=== PATIENT | female | born 2000 | race Caucasian/White ===

== ENCOUNTER 2024-04-02 07:46 | Inpatient (IN) ==
[2024-04-02] MEDS ORDERED: LIDOCAINE 1% LOCAL 20 ML VIAL INFIL PRN (07:50)
--- NOTE | 2024-04-02 08:14 | History & Physical Report ---
Date of Service April 02, 2024 Assessment & Plan (1) Encounter for induction of labor: (2) Obesity affecting : (3) Supervision of normal intrauterine in primigravida: (4) Carrier of group B Streptococcus: Plan admit for IOL SROM labs & vitals stable FHT category 1 Start pit, pt desires pain control via IV, needs penicillin Admission and Anticipated Discharge Date Admission Date: April 02, 2024 History of Present Illness Chief Complaint: IOL, SROM Primary Care Provider: PATY Ding Patient is a 23 y/o female G1 currently at 40 4/7 WGA (BARBARA 03/29/24 by LMP) who presents to L&D for IOL. This has been uncomplicated. She has had regular appointments with OB. She denies fevers, fatigue, HANKS, SOB, chest pain, leg swelling, or n/v exceeding baseline -related symptoms. Having mild, irregular contractions but cannot feel them yet; movement present; SROM on way to room External FHT and external uterine monitors in place; tracing category 1, normal variability Blood type: A+ Antibody screen: negative GBS: pos Rubella: Immune VDRL/RPR: Neg Gonorrhea: Not detected Chalmydia: Not detected HIV: Neg HbSAg: Non-reactive Allergies Allergy/AdvReac Type Severity Reaction Status Date / Time No Known Allergies Allergy Verified 04/02/24 08:35 Home Medications Medication Instructions Recorded Confirmed Type bupropion HCl 150 mg 24 hr tablet, 150 mg PO DAILY 08/22/23 04/02/24 History extended release (Wellbutrin XL) albuterol sulfate 2 puff inhalation DIRECTED PRN 10/17/23 04/02/24 History Shortness Of Breath Or Wheezing Past Med/Surg History Problem List (Updated 04/02/24 @ 09:12 by Heydi Fletcher MD) Encounter for induction of labor Obesity affecting Supervision of normal intrauterine in primigravida Carrier of group B Streptococcus Medical History (Updated 04/02/24 @ 09:12 by Heydi Fletcher MD) Asthma uses albuterol as needed Anxiety with depression Welbutrin History of Chiari malformation Surgical History History of wisdom tooth extraction History of surgery Chiari Malformation repair (2013, [facility] [place] Family History Mother Factor 5 Leiden mutation, heterozygous Other Breast cancer Diabetes Social History (Updated 04/02/24 @ 08:35 by Donita Quiroz RN) Smoking Status: Never smoker Do You Dip or Chew Tobacco: No; Hx Alcohol Use: No Hx Substance Use: No Preferred Language: [place] Wrapping Machine Operator Required: No Beliefs That Will Affect Care: None marital status: Single marital status details: MOM: Liz [phone] Current Living Situation: Family and Significant Other Current Living Situation Comment: lives with foavery and his mother, 3 siblings, and moms jeanna current occupational status: employed current occupation: Retail at [employer] Other Information That Helps Us Care for You: No Feels Safe at Home: Yes Safety Concerns: Feels Safe At This Time Assistive Devices: Glasses Review of Systems 2 Constitutional: + fatigue Physical Exam 2 Physical Exam: General: Alert and oriented. No acute distress CV: Regular rate and rhythm. No murmurs. Respiratory: CTA bilaterally. No increased work of breathing. Symmetrical chest rise Abdomen: Gravid: Soft, nontender upon palpation Pelvic: 2cm dilation, -[address] Guzman Lower extremities: NO LE edema. No deep calf pain. Results & Data Results & Data Vital Signs (Past 12 Hours) Vital Signs Pulse BP 04/02/24 08:30 82 133/82 Laboratory Results 04/02/24 08:07 Supervising Physician Co-Signing Physician Notes Resident Physician Supervision Note: I was present with Dr. Fletcher during the history and exam. I discussed the case with the resident and agree with the findings and plan as documented in the note. Any exceptions or clarifications are listed here: 23yo G1 at 40 wks with srom at 0615 this am, clear fluid. no regular ctx. ready for pitocin induction. sve tight 2/75%/-2, abd soft gravid nt 7-8#, ext no edema. fhts categ 1. toco irreg. begin pit, pcn for gbs pos. Documented By: Brea Guzman MD, FACOG
[2024-04-02 08:21] LABS: Hematocrit (blood only) 36.5 % (37.0-47.0); Hemoglobin 11.8 g/dl (12.0-16.0); Mean Corpuscular Hemoglobin 25.3 pg (25.0-34.0); Mean Corpuscular Hgb Conc 32.3 g/dL (32.0-36.0); Mean Corpuscular Volume 78.3 fL (80.0-100.0); Mean Platelet Volume 11.9 fL (9.4-12.4); Platelet Count 179 K/uL (130-400); RDW Coefficient of Variation 15.9 % (11.5-14.5); RDW Standard Deviation 44.2 fL (36.4-46.3); Red Blood Count 4.66 M/uL (4.20-5.40); White Blood Count 7.61 K/ul (4.8-10.8)
[2024-04-02] MEDS: PENICILLIN GK 6 MU in SODIUM CHLORIDE 0.9% 250 ML IV STA (08:32)
[2024-04-02] MEDS: LACTATED RINGER'S 1,000 ML IV SCH (08:45)
[2024-04-02] MEDS: OXYTOCIN 30 UNITS/NSS 30 UNITS/500 ML BAG IV PRN (09:15)
[2024-04-02] MEDS ORDERED: ePHEDrine sulfate 50 MG/ML AMP IV PRN (11:25)
[2024-04-02] MEDS ORDERED: NALBUPHINE HCL INJ 10 MG/ML AMP IV PRN (11:25)
[2024-04-02] MEDS ORDERED: LIDOCAINE 2% MPF LOCAL 5 ML VIAL EPI PRN (11:25)
[2024-04-02] MEDS ORDERED: NALOXONE HCL 1 MG in SODIUM CHLORIDE 0.9% 1,000 ML IV PRN (11:25)
[2024-04-02] MEDS ORDERED: NALOXONE HCL 0.4 MG/1 ML VIAL/CARP IV PRN (11:25)
[2024-04-02] MEDS ORDERED: ROPIVACAINE 0.5% PF 5 MG/ML 20 ML VIAL EPI PRN (11:25)
[2024-04-02] MEDS ORDERED: SODIUM CHLORIDE 0.9% PF INJ 10 ML VIAL EPI PRN (11:25)
[2024-04-02] MEDS ORDERED: diphenhydrAMINE 50 MG/ML VIAL IV PRN (11:25)
--- NOTE | 2024-04-02 11:29 | Anesthesiology Consultation ---
Date of Service April 02, 2024 Assessment & Plan Chart Review Chart Review: Patient NOT seen in Pre Admission Testing and Acceptable Risk for Labor Epidural Consults Requested none ASA ASA2 Proposed Anesthesia Anesthesia Type: Labor Epidural Risk / Benefits Reviewed With: PT / POA / Parent / Guardian, Accepts Plan and Informed Consent Obtained History Height/Weight Height: 5 ft Weight: 81.193 kg Allergies Allergy/AdvReac Type Severity Reaction Status Date / Time No Known Allergies Allergy Verified 04/02/24 08:35 Medications Home Medications Medication Instructions Recorded Confirmed Last Taken bupropion HCl 150 mg 24 hr tablet, 150 mg PO DAILY 08/22/23 04/02/24 04/02/24 extended release (Wellbutrin XL) albuterol sulfate 2 puff inhalation DIRECTED PRN 10/17/23 04/02/24 03/22/24 Shortness Of Breath Or Wheezing Active Medications Generic Name Dose Route Start Last Admin Trade Name Freq PRN Reason Stop Dose Admin Oxytocin 30 units in 500 mls @ 5 mls/hr 04/02/24 07:50 04/02/24 10:30 Pitocin 30 Units/Nss IV 04/04/24 07:49 0.3 units/hr .Q24H PRN 5 mls/hr Labor Induction/Augmentation Titration Protocol 0.3 UNITS/HR Lactated Ringer's 1,000 mls @ 50 mls/hr 04/02/24 08:45 04/02/24 11:44 Lr IV 04/03/24 08:44 50 mls/hr .Q20H JOAO Administration NPO Date Last Intake of Fluids: 04/02/24 Time Last Intake of Fluids: 11:00 Date Last Intake of Solids: 04/02/24 Time Last Intake of Solids: 02:00 Past Medical History Medical History Asthma uses albuterol as needed Anxiety with depression Welbutrin History of Chiari malformation Exercise / Class Metabolic Activity 1 > 8 Run/Swim/Ski/Tennis Past Family History Family History Mother Factor 5 Leiden mutation, heterozygous Other Breast cancer Diabetes Past Surgical History Surgical History History of wisdom tooth extraction History of surgery Chiari Malformation repair (2014, [facility] – [place]) Past Anesthesia History No Hx of Anesthesia Complications and No Family Hx of Anesthesia Complications History of PONV No Hx of PONV and No Hx of Motion Sickness Social History Smoking Status: Never smoker Do You Dip or Chew Tobacco: No Hx Alcohol Use: No Hx Substance Use: No substance use type: does not use Review of Systems ROS Unobtainable: All systems reviewed & are unremarkable except as noted in HPI & below Physical Exam Vital Signs Last Vital Signs Temp 37.1 C 04/02/24 11:10 Pulse 78 04/02/24 11:25 Resp 20 04/02/24 11:10 BP 147/86 H 04/02/24 11:16 Pulse Ox 100 04/02/24 11:25 ENMT Mouth: no TMJ abnormality Thyromental Distance: > or= 3.5 Finger Breadths Mallampati Class: II Neck normal visual inspection and trachea midline; neck extension not limited Respiratory normal respiratory effort Auscultation: lungs clear to auscultation bilaterally Cardiovascular Rate/Rhythm: regular rate and regular rhythm Heart Sounds: no murmur Musculoskeletal Spine: normal cervical ROM Extremities: full ROM of extremities Neurologic moves all extremities Psychiatric Orientation: alert and oriented x 3 Testing Laboratory Results 04/02/24 08:07
[2024-04-02] MEDS: LIDOCAINE 2%/EPINEPHRINE 1:200,000 20 ML PF ONE (11:50)
[2024-04-02] MEDS: fentaNYL citrate PF 100 MCG/2 ML VIAL ONE (11:50)
[2024-04-02] MEDS: BUPIVACAINE 0.25% PF 30 ML VIAL ONE (11:50)
[2024-04-02] MEDS: fentANYL 2 MCG/ML BUPIVacaine 0.125%-NSS 100ML BAG ONE (11:52)
[2024-04-02] MEDS: PENICILLIN GK 3 MU in DEXTROSE 5% 100 ML IV PRN (12:21)
[2024-04-02] MEDS: ONDANSETRON INJ 2 MG/ML 2 ML VIAL IV PRN (12:23)
[2024-04-02] MEDS: SODIUM CHLORIDE 0.9% PF INJ 10 ML VIAL ONE (12:28)
[2024-04-02] MEDS: fentaNYL citrate PF 100 MCG/2 ML VIAL EPI STA (12:28)
[2024-04-02] MEDS: LIDOCAINE 2%/EPINEPHRINE 1:200,000 20 ML PF EPI STA (12:28)
[2024-04-02] MEDS: BUPIVACAINE 0.25% PF 30 ML VIAL EPI STA (12:28)
[2024-04-02] MEDS: SODIUM CHLORIDE 0.9% PF INJ 10 ML VIAL EPI STA (12:28)
--- NOTE | 2024-04-02 13:29 | Labor Progress Brief Note ---
Date of Service April 02, 2024 Subjective now comfortable with epidural Assessment & Plan (1) Encounter for induction of labor: (2) PROM (premature rupture of membranes): Plan no real cx change. will cont with pitocin. fhts categ 1. c/w pcn for gbs. Admission and Anticipated Discharge Date Admission Date: April 02, 2024 Physical Exam Constitutional: WD/WN, vitals as above Genitourinary: Manual OB Exam: + cervical dilation (2), + cervical effacement 70% and + station -2 OB Exam Monitor Tracing: + external FHT monitor used, + external uterine monitor used (pit at 7), + category I and + normal FHT variability Results & Data Vital Signs (Past 12 Hours) Vital Signs Temp Pulse Resp BP Pulse Ox 04/02/24 13:26 88 98 04/02/24 13:21 78 100 04/02/24 13:20 80 103/54 L 04/02/24 13:16 78 99 04/02/24 13:11 76 99 04/02/24 13:06 74 100 04/02/24 13:05 81 115/56 L 04/02/24 13:01 76 100 04/02/24 13:00 18 04/02/24 13:00 98.2 F 18 04/02/24 12:56 84 100 04/02/24 12:51 79 100 04/02/24 12:50 81 117/57 L 04/02/24 12:46 77 100 04/02/24 12:45 20 04/02/24 12:41 82 99 04/02/24 12:36 73 100 04/02/24 12:35 75 117/56 L 04/02/24 12:31 77 99 04/02/24 12:30 18 04/02/24 12:26 75 100 04/02/24 12:21 99 H 99 04/02/24 12:19 90 129/67 04/02/24 12:17 88 119/63 04/02/24 12:15 18 04/02/24 12:15 100 04/02/24 12:15 76 04/02/24 12:15 72 123/61 04/02/24 12:13 82 122/65 04/02/24 12:11 92 H 125/66 04/02/24 12:10 79 100 04/02/24 12:09 85 115/57 L 04/02/24 12:07 95 H 116/56 L 04/02/24 12:05 95 H 116/57 L 100 04/02/24 12:03 109 H 117/60 04/02/24 12:01 86 120/63 04/02/24 12:00 20 04/02/24 12:00 97 H 99 04/02/24 11:59 96 H 119/64 04/02/24 11:57 88 120/66 04/02/24 11:55 97 H 123/68 100 04/02/24 11:53 93 H 123/70 04/02/24 11:51 84 127/69 04/02/24 11:50 87 100 04/02/24 11:49 91 H 123/76 04/02/24 11:47 87 140/61 04/02/24 11:45 94 H 99 04/02/24 11:40 92 H 100 04/02/24 11:35 94 H 100 04/02/24 11:30 82 100 04/02/24 11:25 78 100 04/02/24 11:20 81 100 04/02/24 11:16 82 147/86 H 04/02/24 11:15 81 100 04/02/24 11:10 98.8 F 82 20 99 04/02/24 10:16 74 127/77 04/02/24 09:15 76 138/86 04/02/24 08:31 98.2 F 18 04/02/24 08:30 82 133/82 Coding Level of Care Code None Diagnoses Encounter for induction of labor Z34.90 PROM (premature rupture of membranes) O42.90
[2024-04-02] MEDS: CALCIUM CARBONATE 500 MG CHEWABLE TAB PO PRN (14:43)
[2024-04-02] MEDS ORDERED: CALCIUM CARBONATE 500 MG CHEWABLE TAB PO PRN (16:06)
[2024-04-02] MEDS: ePHEDrine sulfate 50 MG/ML AMP ONE (17:46)
--- NOTE | 2024-04-02 18:08 | Labor Progress Brief Note ---
Date of Service April 02, 2024 Subjective feeling pressure Assessment & Plan (1) Encounter for induction of labor: (2) PROM (premature rupture of membranes): (3) Obesity affecting : Plan good cx change. keep using pitocin, pcn for gbs. fhts categ 1. Admission and Anticipated Discharge Date Admission Date: April 02, 2024 Physical Exam Constitutional: WD/WN, vitals as above Genitourinary: Manual OB Exam: + cervical dilation 5 cm, + cervical effacement 80% and + station -2 Results & Data Vital Signs (Past 12 Hours) Vital Signs Temp Pulse Resp BP Pulse Ox 04/02/24 18:06 106 H 120/69 04/02/24 18:01 113 H 99 04/02/24 17:56 83 99 04/02/24 17:51 81 99 04/02/24 17:50 86 119/62 04/02/24 17:46 80 100 04/02/24 17:41 105 H 98 04/02/24 17:37 83 119/62 04/02/24 17:36 90 99 04/02/24 17:31 104 H 100 04/02/24 17:30 20 04/02/24 17:26 101 H 100 04/02/24 17:21 111 H 100 04/02/24 17:20 108 H 118/62 04/02/24 17:16 100 H 100 04/02/24 17:11 94 H 98 04/02/24 17:06 98 04/02/24 17:06 111 H 04/02/24 17:06 101 H 115/57 L 04/02/24 17:01 103 H 99 04/02/24 17:00 16 04/02/24 17:00 98.6 F 16 04/02/24 16:56 88 100 04/02/24 16:53 99 H 118/60 04/02/24 16:51 94 H 100 04/02/24 16:46 107 H 100 04/02/24 16:41 88 100 04/02/24 16:36 107 H 99 04/02/24 16:35 91 H 116/58 L 04/02/24 16:31 99 H 99 04/02/24 16:30 20 04/02/24 16:30 20 04/02/24 16:26 86 100 04/02/24 16:21 105 H 122/70 99 04/02/24 16:16 111 H 99 04/02/24 16:11 83 98 04/02/24 16:06 81 120/62 97 04/02/24 16:01 102 H 99 04/02/24 16:00 20 04/02/24 16:00 20 04/02/24 15:56 80 97 04/02/24 15:51 98 H 121/64 98 04/02/24 15:46 82 98 04/02/24 15:41 90 99 04/02/24 15:36 79 121/69 99 04/02/24 15:31 111 H 99 04/02/24 15:30 20 04/02/24 15:30 20 04/02/24 15:26 100 H 99 04/02/24 15:21 99 H 98 04/02/24 15:20 92 H 125/67 04/02/24 15:16 86 98 04/02/24 15:11 90 98 04/02/24 15:06 81 97 04/02/24 15:05 86 125/71 04/02/24 15:01 94 H 97 04/02/24 15:00 18 04/02/24 15:00 99.0 F 18 04/02/24 14:56 83 98 04/02/24 14:51 77 130/64 98 04/02/24 14:46 97 H 98 04/02/24 14:41 95 H 98 04/02/24 14:37 88 119/63 04/02/24 14:36 93 H 98 04/02/24 14:31 87 99 04/02/24 14:30 20 04/02/24 14:30 20 04/02/24 14:26 109 H 99 04/02/24 14:21 99 04/02/24 14:21 103 H 04/02/24 14:21 96 H 113/59 L 04/02/24 14:16 96 H 98 04/02/24 14:11 107 H 99 04/02/24 14:09 93 H 132/73 04/02/24 14:06 95 H 99 04/02/24 14:01 96 H 99 04/02/24 14:00 20 04/02/24 14:00 20 04/02/24 13:56 87 99 04/02/24 13:51 92 H 100 04/02/24 13:50 88 116/64 04/02/24 13:46 91 H 99 04/02/24 13:45 18 04/02/24 13:41 89 99 04/02/24 13:37 86 123/67 04/02/24 13:36 90 99 04/02/24 13:31 84 98 04/02/24 13:30 20 04/02/24 13:30 20 04/02/24 13:26 88 98 04/02/24 13:21 78 100 04/02/24 13:20 80 103/54 L 04/02/24 13:16 78 99 04/02/24 13:15 20 04/02/24 13:11 76 99 04/02/24 13:06 74 100 04/02/24 13:05 81 115/56 L 04/02/24 13:01 76 100 04/02/24 13:00 18 04/02/24 13:00 98.2 F 18 04/02/24 12:56 84 100 04/02/24 12:51 79 100 04/02/24 12:50 81 117/57 L 04/02/24 12:46 77 100 04/02/24 12:45 20 04/02/24 12:41 82 99 04/02/24 12:36 73 100 04/02/24 12:35 75 117/56 L 04/02/24 12:31 77 99 04/02/24 12:30 18 04/02/24 12:26 75 100 04/02/24 12:21 99 H 99 04/02/24 12:19 90 129/67 04/02/24 12:17 88 119/63 04/02/24 12:15 18 04/02/24 12:15 100 04/02/24 12:15 76 04/02/24 12:15 72 123/61 04/02/24 12:13 82 122/65 04/02/24 12:11 92 H 125/66 04/02/24 12:10 79 100 04/02/24 12:09 85 115/57 L 04/02/24 12:07 95 H 116/56 L 04/02/24 12:05 95 H 116/57 L 100 04/02/24 12:03 109 H 117/60 04/02/24 12:01 86 120/63 04/02/24 12:00 20 04/02/24 12:00 97 H 99 04/02/24 11:59 96 H 119/64 04/02/24 11:57 88 120/66 04/02/24 11:55 97 H 123/68 100 04/02/24 11:53 93 H 123/70 04/02/24 11:51 84 127/69 04/02/24 11:50 87 100 04/02/24 11:49 91 H 123/76 04/02/24 11:47 87 140/61 04/02/24 11:45 94 H 99 04/02/24 11:40 92 H 100 04/02/24 11:35 94 H 100 04/02/24 11:30 82 100 04/02/24 11:25 78 100 04/02/24 11:20 81 100 04/02/24 11:16 82 147/86 H 04/02/24 11:15 81 100 04/02/24 11:10 98.8 F 82 20 99 04/02/24 10:16 74 127/77 04/02/24 09:15 76 138/86 04/02/24 08:31 98.2 F 18 04/02/24 08:30 82 133/82 Coding Level of Care Code None Diagnoses Encounter for induction of labor Z34.90 PROM (premature rupture of membranes) O42.90 Obesity affecting O99.210
[2024-04-02] MEDS: fentANYL 2 MCG/ML BUPIVacaine 0.125%-NSS 100ML BAG EPI PRN (18:52)
--- NOTE | 2024-04-02 19:37 | Labor Progress Brief Note ---
Date of Service April 02, 2024 Subjective comfortable now Assessment & Plan (1) Encounter for induction of labor: (2) PROM (premature rupture of membranes): (3) Obesity affecting : Plan c/w pit and pcn. good cx change. fhts categ 1. Admission and Anticipated Discharge Date Admission Date: April 02, 2024 Physical Exam Constitutional: WD/WN, vitals as above Genitourinary: Manual OB Exam: + cervical dilation 7 cm, + cervical effacement 80% and + station 0 OB Exam Monitor Tracing: + external FHT monitor used, + external uterine monitor used, + category I and + normal FHT variability Results & Data Vital Signs (Past 12 Hours) Vital Signs Temp Pulse Resp BP Pulse Ox 04/02/24 19:31 96 H 99 04/02/24 19:26 101 H 99 04/02/24 19:21 92 H 98 04/02/24 19:20 98 H 130/70 04/02/24 19:16 86 100 04/02/24 19:11 110 H 99 04/02/24 19:10 18 04/02/24 19:10 18 04/02/24 19:06 98 04/02/24 19:06 118 H 04/02/24 19:06 106 H 134/66 04/02/24 19:01 108 H 99 04/02/24 19:00 20 04/02/24 19:00 20 04/02/24 18:56 111 H 99 04/02/24 18:51 96 H 117/59 L 99 04/02/24 18:46 102 H 99 04/02/24 18:41 102 H 100 04/02/24 18:36 101 H 125/63 99 04/02/24 18:31 127 H 99 04/02/24 18:30 20 04/02/24 18:30 20 04/02/24 18:26 97 H 100 04/02/24 18:21 98 04/02/24 18:21 99 H 04/02/24 18:21 107 H 125/66 04/02/24 18:16 99 H 98 04/02/24 18:11 86 100 04/02/24 18:06 99 04/02/24 18:06 85 04/02/24 18:06 106 H 120/69 04/02/24 18:01 113 H 99 04/02/24 18:00 20 04/02/24 18:00 20 04/02/24 17:56 83 99 04/02/24 17:51 81 99 04/02/24 17:50 86 119/62 04/02/24 17:46 80 100 04/02/24 17:41 105 H 98 04/02/24 17:37 83 119/62 04/02/24 17:36 90 99 04/02/24 17:31 104 H 100 04/02/24 17:30 20 04/02/24 17:26 101 H 100 04/02/24 17:21 111 H 100 04/02/24 17:20 108 H 118/62 04/02/24 17:16 100 H 100 04/02/24 17:11 94 H 98 04/02/24 17:06 98 04/02/24 17:06 111 H 04/02/24 17:06 101 H 115/57 L 04/02/24 17:01 103 H 99 04/02/24 17:00 16 04/02/24 17:00 98.6 F 16 04/02/24 16:56 88 100 04/02/24 16:53 99 H 118/60 04/02/24 16:51 94 H 100 04/02/24 16:46 107 H 100 04/02/24 16:41 88 100 04/02/24 16:36 107 H 99 04/02/24 16:35 91 H 116/58 L 04/02/24 16:31 99 H 99 04/02/24 16:30 20 04/02/24 16:30 20 04/02/24 16:26 86 100 04/02/24 16:21 105 H 122/70 99 04/02/24 16:16 111 H 99 04/02/24 16:11 83 98 04/02/24 16:06 81 120/62 97 04/02/24 16:01 102 H 99 04/02/24 16:00 20 04/02/24 16:00 20 04/02/24 15:56 80 97 04/02/24 15:51 98 H 121/64 98 04/02/24 15:46 82 98 04/02/24 15:41 90 99 04/02/24 15:36 79 121/69 99 04/02/24 15:31 111 H 99 04/02/24 15:30 20 11/14/24 15:30 20 04/02/24 15:26 100 H 99 04/02/24 15:21 99 H 98 04/02/24 15:20 92 H 125/67 04/02/24 15:16 86 98 04/02/24 15:11 90 98 04/02/24 15:06 81 97 04/02/24 15:05 86 125/71 04/02/24 15:01 94 H 97 04/02/24 15:00 18 04/02/24 15:00 99.0 F 18 04/02/24 14:56 83 98 04/02/24 14:51 77 130/64 98 04/02/24 14:46 97 H 98 04/02/24 14:41 95 H 98 04/02/24 14:37 88 119/63 04/02/24 14:36 93 H 98 04/02/24 14:31 87 99 04/02/24 14:30 20 04/02/24 14:30 20 04/02/24 14:26 109 H 99 04/02/24 14:21 99 04/02/24 14:21 103 H 04/02/24 14:21 96 H 113/59 L 04/02/24 14:16 96 H 98 04/02/24 14:11 107 H 99 04/02/24 14:09 93 H 132/73 04/02/24 14:06 95 H 99 04/02/24 14:01 96 H 99 04/02/24 14:00 20 04/02/24 14:00 20 04/02/24 13:56 87 99 04/02/24 13:51 92 H 100 04/02/24 13:50 88 116/64 04/02/24 13:46 91 H 99 04/02/24 13:45 18 04/02/24 13:41 89 99 04/02/24 13:37 86 123/67 04/02/24 13:36 90 99 04/02/24 13:31 84 98 04/02/24 13:30 20 04/02/24 13:30 20 04/02/24 13:26 88 98 04/02/24 13:21 78 100 04/02/24 13:20 80 103/54 L 04/02/24 13:16 78 99 04/02/24 13:15 20 04/02/24 13:11 76 99 04/02/24 13:06 74 100 04/02/24 13:05 81 115/56 L 04/02/24 13:01 76 100 04/02/24 13:00 18 04/02/24 13:00 98.2 F 18 04/02/24 12:56 84 100 04/02/24 12:51 79 100 04/02/24 12:50 81 117/57 L 04/02/24 12:46 77 100 04/02/24 12:45 20 04/02/24 12:41 82 99 04/02/24 12:36 73 100 04/02/24 12:35 75 117/56 L 04/02/24 12:31 77 99 04/02/24 12:30 18 04/02/24 12:26 75 100 04/02/24 12:21 99 H 99 04/02/24 12:19 90 129/67 04/02/24 12:17 88 119/63 04/02/24 12:15 18 04/02/24 12:15 100 04/02/24 12:15 76 04/02/24 12:15 72 123/61 04/02/24 12:13 82 122/65 04/02/24 12:11 92 H 125/66 04/02/24 12:10 79 100 04/02/24 12:09 85 115/57 L 04/02/24 12:07 95 H 116/56 L 04/02/24 12:05 95 H 116/57 L 100 04/02/24 12:03 109 H 117/60 04/02/24 12:01 86 120/63 04/02/24 12:00 20 04/02/24 12:00 97 H 99 04/02/24 11:59 96 H 119/64 04/02/24 11:57 88 120/66 04/02/24 11:55 97 H 123/68 100 04/02/24 11:53 93 H 123/70 04/02/24 11:51 84 127/69 04/02/24 11:50 87 100 04/02/24 11:49 91 H 123/76 04/02/24 11:47 87 140/61 04/02/24 11:45 94 H 99 04/02/24 11:40 92 H 100 04/02/24 11:35 94 H 100 04/02/24 11:30 82 100 04/02/24 11:25 78 100 04/02/24 11:20 81 100 04/02/24 11:16 82 147/86 H 04/02/24 11:15 81 100 04/02/24 11:10 98.8 F 82 20 99 04/02/24 10:16 74 127/77 04/02/24 09:15 76 138/86 04/02/24 08:31 98.2 F 18 04/02/24 08:30 82 133/82 Coding Level of Care Code None Diagnoses Encounter for induction of labor Z34.90 PROM (premature rupture of membranes) O42.90 Obesity affecting O99.210
[2024-04-02] MEDS: BUPIVACAINE 0.25% PF 30 ML VIAL EPI PRN (23:03)
[2024-04-02] MEDS: fentaNYL citrate PF 100 MCG/2 ML VIAL EPI PRN (23:03)
--- NOTE | 2024-04-02 23:27 | Anesthesia Procedure Note ---
Date of Service April 02, 2024 Anesthesia Epidural Re-Dose Vital Signs Temp Pulse Resp BP Pulse Ox 37.0 C 101 H 18 122/67 99 04/02/24 21:30 04/02/24 23:21 04/02/24 21:30 04/02/24 23:17 04/02/24 23:21 Notes Pain Intensity: 5 Dilatation (cm): 8.0 Effacement (%): 80 Called by nursing to evaluate epidural as the patient is having increased pain. The epidural was re-dosed with the following medications (all medications via epidural route) after negative aspiration of the epidural catheter for CSF/HEME. 0.2 Ropivacaine ml via epidural After Epidural Re-Dose Mental Status: alert / awake / arousable and participated in evaluation Pain: improving with treatment Airway Patency, RR, SpO2: stable & adequate BP & HR: stable & adequate Additional Notes: Redosed with 8 cc of 0.25% and 100 mcg fentanyl with improvement. HDS.
[2024-04-02] MEDS ORDERED: NURSING L&D Epidural Breakthrough Pain Update ONE (23:40)
[2024-04-03] MEDS: BUTORPHANOL TARTRATE 2 MG/ML VIAL ONE (04:00)
--- NOTE | 2024-04-03 04:13 | Delivery Summary ---
Vaginal Delivery Summary Date of Service April 03, 2024 Vaginal Delivery Summary and 2nd Degree LAC The patient dilated to complete and pushed to deliver a viable female Apgars 8 and 9 via over 2nd degree perineal laceration. Mouth and nose bulb suctioned at perineum. Shoulders and body delivered with ease. was vigorous and crying at . Cord clamped at 30 seconds of life and to maternal abdomen where the cord was then doubly clamped and cut. Placenta delivered spontaneously and intact, three-vessel cord. Hemostasis not achieved with dilute pitocin and uterine massage and drainage of the bladder for approximately 50 cc under sterile conditions. Bimanual massage performed and uterus swept x 1 with no retained products. Cytotec rectally given 1000mcg and after bp assessed due to ongoing atony, Im methergine given. Hemostasis improving. Cervix and sulci intact. QBL 738 cc. Laceration repaired in routine fashion with 3-0 vicryl. Mother and baby stable in recovery. [facility] Vaginal Delivery Charge Delivery Type Details: and 2nd Degree LAC
[2024-04-03] MEDS: OXYTOCIN 30 UNITS/NSS 30 UNITS/500 ML BAG IV PRN (04:14)
[2024-04-03] MEDS ORDERED: HYDROCORTISONE ACETATE 25 MG SUPP PR PRN (04:36)
[2024-04-03] MEDS ORDERED: oxyCODONE/ACETAMINOPHEN 5mg/325mg TAB PO PRN (04:36)
[2024-04-03] MEDS ORDERED: OXYTOCIN 30 UNITS/NSS 30 UNITS/500 ML BAG IV PRN (04:36)
[2024-04-03] MEDS: BUTORPHANOL TARTRATE 2 MG/ML VIAL IV ONE (04:37)
[2024-04-03] MEDS ORDERED: ALBUTEROL HFA 8 GM INHALER INH PRN (04:40)
[2024-04-03] MEDS: METHYLERGONOVINE MALEATE 0.2 MG/ML AMP IM ONE (04:59)
[2024-04-03] MEDS: miSOPROStoL 200 MCG TAB PR ONE (05:00)
--- NOTE | 2024-04-03 07:18 | Anesthesia Procedure Note ---
Date of Service April 03, 2024 Anesthesia Post Epidural Note Vital Signs Vital Signs: Temp Pulse Resp BP Pulse Ox 98.2 F 92 H 16 136/81 99 04/03/24 03:45 04/03/24 06:08 04/03/24 06:10 04/03/24 06:08 04/03/24 04:12 Pain Intensity Buttock: Pain Intensity: 0 Notes Mental Status: alert / awake / arousable and participated in evaluation Nausea / Vomiting: adequately controlled Pain: adequately controlled Airway Patency, RR, SpO2: stable & adequate BP & HR: stable & adequate Hydration State: stable & adequate Neuraxial Anesthesia: was administered and sensory block is resolving Anesthetic Complications: no major complications apparent and Pt Satisfied with anesthetic care Epidural: Removed without complications and With tip intact
[2024-04-03] MEDS: buPROPion XL 150 MG TABCR PO SCH (07:58)
[2024-04-03] MEDS: DOCUSATE SODIUM 100 MG CAP PO SCH (07:59)
[2024-04-03] MEDS: PRENATAL VITAMIN 1 TAB PO SCH (07:59)
[2024-04-03] MEDS: IBUPROFEN 600 MG TAB PO PRN (07:59)
[2024-04-03] MEDS: BENZOCAINE 20% SPRY 85 APPLN/85 GM CAN EXT PRN (08:42)
[2024-04-03] MEDS: DIPHTHER/TETAN/PERTUS Vaccine (Tdap, Adol/Adult) 0.5mL IM ONE (12:23)
[2024-04-03 12:53] LABS: Hematocrit (blood only) 32.7 % (37.0-47.0); Hemoglobin 10.7 g/dl (12.0-16.0)
[2024-04-03] MEDS: ACETAMINOPHEN 325 MG TAB PO PRN (14:02)
[2024-04-03] MEDS: ONDANSETRON INJ 2 MG/ML 2 ML VIAL IV PRN (17:58)
--- NOTE | 2024-04-04 05:51 | Obstetrical Progress Note ---
Date of Service <Heydi Fletcher MD - Last Filed: 04/04/24 07:10> April 04, 2024 Assessment & Plan <Heydi Fletcher MD - Last Filed: 04/04/24 07:10> (1) Obesity affecting : (2) Supervision of normal intrauterine in primigravida: (3) Carrier of group B Streptococcus: Plan PPD#1, gbs+ s/p Williams, Rh+, ri Stable, continue routine care Plan for DC, send w pain meds <Mary Ellen Orellana MD - Last Filed: 04/04/24 07:48> (1) Obesity affecting : (2) Supervision of normal intrauterine in primigravida: (3) Carrier of group B Streptococcus: Plan PPD#1, gbs+ s/p Williams, Rh+, ri Stable, continue routine care Plan for DC Subjective <Heydi Fletcher MD - Last Filed: 04/04/24 07:10> Martha is a 23 y/o female G1 who is PPD#1 following at 40+ weeks. Minimal abd pain/cramping, well managed on analgesics Is voiding normally Tolerating meals Tried ambulating but it's harder since hips hurt Having appropriate lochia Planning for exclusive . Constitutional: no fever, no chills or no sweats Respiratory: no dyspnea Cardiovascular: no chest pain, no palpitations or no calf pain Breast: no breast pain Gastrointestinal: no nausea or no vomiting Genitourinary (female): no dysuria Neurologic: no headache(s) no changes in vision, no headaches Physical Exam <Heydi Fletcher MD - Last Filed: 04/04/24 07:10> General: Alert, oriented. No acute distress. Cardiac: Regular rate and rhythm, no murmurs, rubs, or gallops. Respiratory: Clear to auscultation bilaterally. No increased work of breathing. Symmetrical chest rise. No respiratory distress. Abdomen: Soft, nontender, nondistended. Bowel sounds present. Uterus: Uterine fundus firm, nontender. Lower extremities: No lower extremity edema or swelling. No deep calf pain. Results & Data <Heydi Fletcher MD - Last Filed: 04/04/24 07:10> Vital Signs (Past 12 Hours) Vital Signs Temp Pulse Resp BP BP Pulse Ox O2 Del Method 04/03/24 23:00 36.4 C L 73 19 103/68 98 Room Air 04/03/24 18:55 36.8 C 84 16 115/76 97 Room Air Supervising Physician <Mary Ellen Orellana MD - Last Filed: 04/04/24 07:48> Co-Signing Physician Notes Resident Physician Supervision Note: I interviewed and examined the patient. Discussed with Dr. Fletcher and agree with findings and plan as documented in the note. Any exceptions or clarifications are listed here: Ready for D/C home. Documented By: Mary Ellen Orellana MD, FACOG Resident Activity Tracking <Heydi Fletcher MD - Last Filed: 04/04/24 07:10> Resident Involvement: Resident Care Provided Care Provided: Adult Hospital Medicine and OB Delivery
[2024-04-04 07:37] VITALS: BP 107/72; RESP 16; TEMP 97.3; O2SAT 100
[2024-04-04 12:22] VITALS: PULSE 76
[2024-04-04] MEDS ORDERED: bisacodyL 5 MG TABEC PO SCH (20:00)
== END 2024-04-04 13:03 | disposition home or self-care (01) | DRG 807 ==
LOC: 4S1 07:46 → 4E2 04-03 07:40